=== PATIENT | male | born 1980 | race Hispanic/Latino ===

== ENCOUNTER 2025-07-31 12:00 | Emergency (ER) | payer SELFPAY ==
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
[2025-07-31 12:04] VITALS: BP 130/97; PULSE 87; RESP 22; TEMP 36.9; O2SAT 98
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
[2025-07-31] MEDS: HYDROcodone/acetaminophen (*CRX) 5-325 MG TABLET 1 TAB PO (12:31)
[2025-07-31] MEDS: KETOROLAC (*BKC) 60 MG/2 ML VIAL IM (13:57)
[2025-07-31 14:08] VITALS: BP 127/88; PULSE 85; RESP 20; TEMP 36.9; O2SAT 98
== END 2025-07-31 14:08 | disposition home or self-care (01) ==
PROVIDERS: Emergency Provider Emergency Medicine; Referring Provider Family Medicine
DX: S22.32XA Fracture of one rib, left side, initial encounter for closed fracture (principal); W17.89XA Other fall from one level to another, initial encounter; Y92.008 Other place in unspecified non-institutional (private) residence as the place of occurrence of the external cause; Y99.0 Civilian activity done for income or pay
CPT/HCPCS: 71046; 71100; 96372; 99283; A9270; J1885

== ENCOUNTER 2025-08-10 16:12 | Emergency (ER) | payer SELFPAY ==
--- NOTE | ~2025-08-10 | XR_ITS ---
EXAMINATION: [id number], 08/10/2025 16:30 CDT HISTORY: known rib fractures with increasing pain COMPARISON: No comparisons available. Findings: Nondisplaced ninth rib fracture redemonstrated, no additional fracture is identified. No significant degenerative changes. Soft tissues unremarkable. Impression: Nondisplaced ninth rib fracture Reviewed, dictated and finalized at location A. Impression: Nondisplaced ninth rib fracture
[2025-08-10 16:14] VITALS: BP 129/96; PULSE 76; RESP 16; TEMP 36.6; O2SAT 98
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
--- NOTE | 2025-08-10 16:35 | PC.NURSE ---
Pt to radiology with radiology transport.
--- NOTE | 2025-08-10 16:46 | PC.NURSE ---
Pt back in room from radiology.
[2025-08-10] MEDS: oxyCODONE HCL (*CRX) 5 MG TAB IR 10 MG PO (17:25)
[2025-08-10 18:07] VITALS: BP 122/86; PULSE 71; RESP 16; O2SAT 99
== END 2025-08-10 18:31 | disposition home or self-care (01) ==
PROVIDERS: Emergency Provider Emergency Medicine; Referring Provider Internal Medicine
DX: S22.32XA Fracture of one rib, left side, initial encounter for closed fracture (principal); X58.XXXA Exposure to other specified factors, initial encounter
CPT/HCPCS: 36415; 71101; 85380; 99283; A9270